=== PATIENT | male | born 1960 | race Caucasian/White ===

== ENCOUNTER 2016-07-16 14:17 | Inpatient (IN) | payer OTHER ==
[~2016-07-16] VITALS: Ht 177.8 cm; Wt 114.8 kg
[2016-07-16 14:34] VITALS: BP 169/119; PULSE 92; RESP 18; TEMP 99.5; O2SAT 99
--- NOTE | 2016-07-16 17:23 | RADHPO ---
EXAM DATE/TIME: 07/16/2016 17:06 [facility] COMPARISON: No previous studies available for comparison. INDICATIONS : Cough, fever and sore throat. Patient complains of more pain on left side. MEDICAL HISTORY : None. SURGICAL HISTORY : None. ENCOUNTER: Initial ACUITY: 2 weeks PAIN SCORE: 5/10 LOCATION: Left neck FINDINGS: Two view examination of the soft tissues of the neck demonstrates the hypopharyngeal airway to have a grossly normal configuration. The trachea is midline. No radiopaque foreign bodies are seen. CONCLUSION: Negative for abscess. Williams Perez MD FACR on July 16, 2016 at 17:21 Board Certified Radiologist. This report was verified electronically.
[2016-07-16 19:14] VITALS: BP 201/117; PULSE 96; RESP 20; TEMP 101.7; O2SAT 98
[2016-07-16] MEDS ORDERED: DEXAMETHASONE SOD PHOS 20 MG/5 ML VIAL IV PUSH ONE (19:15)
[2016-07-16] MEDS ORDERED: AMPICILLIN-SULBACTAM INJ 3 GM in SODIUM CHLORIDE 0.9% INJ 100 ML IV ONE (19:15)
[2016-07-16] MEDS ORDERED: SODIUM CHLOR 0.9% 1000 ML INJ 1,000 ML IV ONE ×2 (19:15)
--- NOTE | 2016-07-16 19:27 | PD ---
HPI Chief Complaint: ENT Complaint Time Seen by Provider: 18:48 Travel History International Travel<30 days: No Contact w/Intl Traveler<30days: No Traveled to known affect area: No History of Present Illness HPI This 56-year-old male says he been sick for the past week. He has been having cough and sore throat. He is having trouble swallowing and a lot of pain with swallowing. He went to an urgent care center today and was told he had an abscess in his throat is clear. He has had some borderline blood pressure elevations in the past but has never been on medication. [facility] Past Medical History Medical History: Denies Significant Hx Influenza Vaccination: No Past Surgical History Oral Surgery: Yes (ADDENOIDS) Social History Alcohol Use: No Tobacco Use: No Substance Use: No Allergies-Medications (Allergen,Severity, Reaction): Coded Allergies: No Known Allergies (Unverified , 07/16/16) Reported Meds & Prescriptions Reported Meds & Active Scripts Active No Active Prescriptions or Reported Medications Review of Systems General / Constitutional: Positive: Fever, Chills HENT: Positive: Sore Throat, No: Headaches, Vertigo Cardiovascular: No: Chest Pain or Discomfort Respiratory: Positive: Cough Gastrointestinal: No: Vomiting, Diarrhea Genitourinary: No: Urgency, Frequency Musculoskeletal: No: Myalgias Neurologic: Positive: Weakness Hematologic/Lymphatic: No: Easy Bruising Physical Exam Narrative GENERAL: Well-developed male SKIN: Warm and dry. HEAD: Atraumatic. Normocephalic. EYES: Pupils equal and round. No scleral icterus. No injection or drainage. ENT: No nasal bleeding or discharge. Mucous membranes pink and moist. Pharynx is erythematous. There is blunting of the tissue in the left peritonsillar region. The uvula is deviated to the right NECK: Trachea midline. No JVD. CARDIOVASCULAR: Regular rate and rhythm. No murmur appreciated. RESPIRATORY: No accessory muscle use. Clear to auscultation. Breath sounds equal bilaterally. GASTROINTESTINAL: Abdomen soft, non-tender, nondistended. Hepatic and splenic margins not palpable. MUSCULOSKELETAL: No obvious deformities. No clubbing. No cyanosis. No edema. NEUROLOGICAL: Awake and alert. No obvious cranial nerve deficits. Motor grossly within normal limits. Normal speech. PSYCHIATRIC: Appropriate mood and affect; insight and judgment normal. Data Data Last Documented VS Vital Signs Date Time Temp Pulse Resp B/P Pulse Ox O2 Delivery O2 Flow Rate FiO2 07/16/16 19:21 105 20 07/16/16 19:14 98 Nasal Cannula 2 07/16/16 19:14 101.7 201/117 Orders Soft Tissue Neck (07/16/16 ) Complete Blood Count With Diff (07/16/16 19:08) Comprehensive Metabolic Panel (07/16/16 19:08) Lactic Acid Sepsis Protocol (07/16/16 19:08) Urinalysis - C+S If Indicated (07/16/16 19:08) Blood Culture (07/16/16 19:08) Chest, Single Ap (07/16/16 19:08) Blood Glucose (07/16/16 19:08) Ecg Monitoring (07/16/16 19:08) Iv Access Insert/Monitor (07/16/16 19:08) Oximetry (07/16/16 19:08) Oxygen Administration (07/16/16 19:08) Sodium Chlor 0.9% 1000 Ml Inj (Ns 1000 M (07/16/16 19:15) Sodium Chlor 0.9% 1000 Ml Inj (Ns 1000 M (07/16/16 19:15) Ampicillin-Sulbactam Inj (Unasyn Inj) (07/16/16 19:15) Dexamethasone Inj (Decadron Inj) (07/16/16 19:15) Ct Soft Tiss Neck W Iv Cont (07/16/16 19:12) Acetaminophen (Tylenol) (07/16/16 19:30) Ibuprofen (Motrin) (07/16/16 19:30) Iohexol 350 Inj (Omnipaque 350 Inj) (07/16/16 20:40) Labs Laboratory Tests Test 07/16/16 07/16/16 19:00 20:40 White Blood Count 16.4 TH/MM3 Red Blood Count 4.91 MIL/MM3 Hemoglobin 13.7 GM/DL Hematocrit 42.5 % Mean Corpuscular Volume 86.5 FL Mean Corpuscular Hemoglobin 28.0 PG Mean Corpuscular Hemoglobin 32.3 % Concent Red Cell Distribution Width 12.9 % Platelet Count 284 TH/MM3 Mean Platelet Volume 8.6 FL Neutrophils (%) (Auto) 83.9 % Lymphocytes (%) (Auto) 7.6 % Monocytes (%) (Auto) 6.9 % Eosinophils (%) (Auto) 1.1 % Basophils (%) (Auto) 0.5 % Neutrophils # (Auto) 13.8 TH/MM3 Lymphocytes # (Auto) 1.2 TH/MM3 Monocytes # (Auto) 1.1 TH/MM3 Eosinophils # (Auto) 0.2 TH/MM3 Basophils # (Auto) 0.1 TH/MM3 CBC Comment AUTO DIFF Differential Comment AUTO DIFF CONFIRMED Platelet Estimate NORMAL Platelet Morphology Comment NORMAL Sodium Level 140 MEQ/L Potassium Level 3.9 MEQ/L Chloride Level 103 MEQ/L Carbon Dioxide Level 27.8 MEQ/L Anion Gap 9 MEQ/L Blood Urea Nitrogen 14 MG/DL Creatinine 0.94 MG/DL Estimat Glomerular Filtration 83 ML/MIN Rate Random Glucose 105 MG/DL Calcium Level 9.2 MG/DL Total Bilirubin 0.7 MG/DL Aspartate Amino Transf 17 U/L (AST/SGOT) Alanine Aminotransferase 42 U/L (ALT/SGPT) Alkaline Phosphatase 195 U/L Total Protein 8.4 GM/DL Albumin 3.2 GM/DL Lactic Acid Level 0.9 mmol/L [facility] Medical Decision Making Medical Screen Exam Complete: Yes Emergency Medical Condition: Yes Medical Record Reviewed: Yes Differential Diagnosis Frontal includes cellulitis, abscess, Narrative Course Patient was started on IV fluids and antibiotics. A CT scan shows soft tissue swelling on the left side of the oropharynx and tonsillar region extending into her left parapharyngeal region consistent with a early abscess left tonsil on parapharyngeal space. There is also an enlarged left submandibular lymph node is a 2 cm. I have discussed the case with Dr. Early. He will consult on the patient in [place]. He asked that we add clindamycin to his antibiotics and keep the patient nothing by mouth Sepsis Criteria SIRS Criteria (2 or more): Temp > 100.9 or < 96.8, Heart rate over 90, WBC > 40909, < 4000 or > 10% bands Sepsis Criteria (SIRS+source): Infect source susp/known Diagnosis Primary Impression: Peritonsillar abscess Admitting Information Admitting Physician Requests: Admit Scripts No Active Prescriptions or Reported Meds Matias Mcmahon MD Jul 16, 2016 19:27
[2016-07-16] MEDS ORDERED: ACETAMINOPHEN 500 MG CPLT PO ONE (19:30)
[2016-07-16] MEDS ORDERED: IBUPROFEN 600 MG TAB PO ONE (19:30)
[2016-07-16 19:32] LABS: AUTOMATED NEUTROPHIL # 13.8 TH/MM3 (1.8-7.7); BASOPHIL # 0.1 TH/MM3 (0-0.2); BASOPHIL % 0.5 % (0.0-2.0); EOSINOPHIL # 0.2 TH/MM3 (0-0.4); EOSINOPHIL % 1.1 % (0.0-4.0); HEMATOCRIT 42.5 % (39.0-51.0); LYMPH % 7.6 % (9.0-44.0); LYMPHOCYTE # 1.2 TH/MM3 (1.0-4.8); MEAN CELL VOLUME 86.5 FL (80.0-100.0); MEAN CORPUSCULAR HGB CONC 32.3 % (32.0-36.0); MONO % 6.9 % (0.0-8.0); NEUT % 83.9 % (16.0-70.0); PLATELET COUNT 284 TH/MM3 (150-450); RED BLOOD COUNT 4.91 MIL/MM3 (4.50-5.90); RED CELL DISTRIBUTION WIDTH 12.9 % (11.6-17.2); WHITE BLOOD COUNT 16.4 TH/MM3 (4.0-11.0)
[2016-07-16 19:36] LABS: CHLORIDE 103 MEQ/L (98-107); POTASSIUM 3.9 MEQ/L (3.5-5.1); SODIUM (NA) 140 MEQ/L (136-145)
[2016-07-16 19:40] LABS: ANION GAP 9 MEQ/L (5-15); BICARBONATE 27.8 MEQ/L (21.0-32.0); BLOOD UREA NITROGEN 14 MG/DL (7-18); HEMO FLAGS AUTO DIFF
[2016-07-16 19:43] LABS: ALT (GPT) 42 U/L (12-78); AST (GOT) 17 U/L (15-37); GLOMERULAR FILTRATION RATE 83 ML/MIN (>89)
[2016-07-16 19:45] LABS: TOTAL BILIRUBIN ADULT 0.7 MG/DL (0.2-1.0)
[2016-07-16 19:46] LABS: ALKALINE PHOSPHATASE 195 U/L (45-117)
[2016-07-16 20:20] LABS: PLATELET ESTIMATE SMEAR NORMAL (NORMAL); PLATELET MORPHOLOGY NORMAL (NORMAL); SCAN/DIFF AUTO DIFF CONFIRMED
--- NOTE | 2016-07-16 20:23 | RADHPO ---
EXAM DATE/TIME: 07/16/2016 19:21 [facility] COMPARISON: No previous studies available for comparison. INDICATIONS : Cough, fever and sore throat. MEDICAL HISTORY : None. SURGICAL HISTORY : None. ENCOUNTER: Initial ACUITY: 2 weeks PAIN SCORE: 6/10 LOCATION: Bilateral chest FINDINGS: A single view of the chest demonstrates the lungs to be symmetrically aerated without evidence of mas s, infiltrate or effusion. The cardiomediastinal contours are unremarkable except tortuous aorta. O sseous structures are intact. CONCLUSION: 1. No active disease. Gabino Cali MD on July 16, 2016 at 20:21 Board Certified Radiologist. This report was verified electronically.
[2016-07-16] MEDS ORDERED: IOHEXOL 350 MG/ML 10 ML VIAL (for RAD DIAG) IV ONE (20:40)
--- NOTE | 2016-07-16 21:06 | RADHPO ---
EXAM DATE/TIME: 07/16/2016 20:09 [facility] COMPARISON: No previous studies available for comparison. INDICATIONS : Difficult swallowing, abscess IV CONTRAST: 76 cc Omnipaque 350 (iohexol) IV RADIATION DOSE: 13.71 CTDIvol (mGy) MEDICAL HISTORY : None SURGICAL HISTORY : Tonsillectomy. ENCOUNTER: Initial ACUITY: 1 day PAIN SCALE: 5/10 LOCATION: neck TECHNIQUE: Volumetric scanning of the neck was performed. Using automated exposure control and adjustment of th e mA and/or kV according to patient size, radiation dose was kept as low as reasonably achievable to obtain optimal diagnostic quality images. FINDINGS: There is extensive soft tissue swelling in the left tonsillar region extending into the left paraphar yngeal space. There is an area of low attenuation measuring about 2.3 cm in diameter most characteris tic of an early tonsillar or left parapharyngeal space abscess. There is encroachment on the left dottie e of the oropharynx and soft tissue swelling extends inferiorly into the preepiglottic space and late ral pharyngeal wall above the glottis. Enlarged submandibular lymph nodes are present on the left dottie e measuring up to about 2 cm in diameter. No acute bony abnormalities. Retention cyst in the right maxillary sinus. Mucosal thickening left max illary sinus. Lung apices are clear. CONCLUSION: Abnormal soft tissue swelling on the left side of the oropharynx and tonsillar region and extending i nto the left parapharyngeal region. There is soft tissue swelling of the lateral pharyngeal wall exte nding almost to the level of the glottis. There is a subtle area of low attenuation measuring up to 2 .3 cm in diameter, probably an early abscess in the left tonsil and parapharyngeal space. Enlarged le ft submandibular lymph node to 2 cm in diameter. Gabino Cali MD on July 16, 2016 at 20:58 Board Certified Radiologist. This report was verified electronically.
[2016-07-16] MEDS ORDERED: CLINDAMYCIN INJ 900 MG in SODIUM CHLORIDE 0.9% INJ 100 ML IV ONE (21:30)
[2016-07-16] MEDS ORDERED: cloNIDine HCL 0.1 MG TAB PO ONE (21:45)
[2016-07-16 21:50] VITALS: BP 165/82; PULSE 60; RESP 20; O2SAT 98
[2016-07-16] MEDS ORDERED: SODIUM CHLOR 0.9% 1000 ML INJ 1,000 ML IV SCH (23:41)
[2016-07-16 23:43] VITALS: BP 155/95; PULSE 79; RESP 20; TEMP 99; O2SAT 97
[2016-07-16] MEDS ORDERED: SODIUM CHLORIDE 0.9% FLUSH 5 ML FLUSH FLUSH PRN (23:45)
[2016-07-16] MEDS ORDERED: NALOXONE HCL 0.4 MG/ML AMP IV PRN (23:45)
[2016-07-17] VITALS (10 sets, daily range): BP systolic 135–162; BP diastolic 75–98; PULSE 60–79; RESP 16–20; TEMP 96.8–98.9; O2SAT 95–99
[2016-07-17 00:19] LABS: GLUCOSE,URINE NEG (NEG); KETONE, URINE 40 mg/dL (NEG); NITRITE,URINE NEG (NEG); PH, URINE 5.5 (5.0-8.5)
[2016-07-17 00:26] LABS: BLOOD, URINE MOD (NEG)
[2016-07-17 00:27] LABS: METHOD OF COLLECTION CLEAN CATCH
[2016-07-17 00:28] LABS: URINE COLOR AMBER (YELLW/STRAW)
[2016-07-17] MEDS: PANTOPRAZOLE SODIUM 40 MG VIAL IV PUSH SCH (00:28)
[2016-07-17] MEDS: DEXAMETHASONE SOD PHOS 4 MG/ML VIAL IV PUSH SCH ×5 (00:28→17:25)
[2016-07-17 00:29] LABS: COMMENT (UR) CULT NOT INDICATED; CULTURE IF INDICATED CULT NOT INDICATED; SQUAMOUS EPITHELIAL CELL URINE 0-5 /hpf (0-5); WBC, URINE 0-2 /hpf (0-5)
[2016-07-17] MEDS: AMPICILLIN-SULBACTAM INJ 3 GM in SODIUM CHLORIDE 0.9% INJ 100 ML IV SCH ×2 (03:02→08:28)
[2016-07-17] MEDS: CLINDAMYCIN INJ 900 MG in SODIUM CHLORIDE 0.9% INJ 100 ML IV SCH ×4 (05:04→22:42)
[2016-07-17 06:20] LABS: AUTOMATED NEUTROPHIL # 13.2 TH/MM3 (1.8-7.7); BASOPHIL # 0.1 TH/MM3 (0-0.2); BASOPHIL % 0.6 % (0.0-2.0); HEMATOCRIT 37.7 % (39.0-51.0); LYMPH % 5.7 % (9.0-44.0); LYMPHOCYTE # 0.8 TH/MM3 (1.0-4.8); MEAN CELL VOLUME 85.9 FL (80.0-100.0); MEAN CORPUSCULAR HEMOGLOBIN 28.8 PG (27.0-34.0); MEAN CORPUSCULAR HGB CONC 33.5 % (32.0-36.0); MONO % 1.5 % (0.0-8.0); NEUT % 92.2 % (16.0-70.0); PLATELET COUNT 253 TH/MM3 (150-450); RED BLOOD COUNT 4.39 MIL/MM3 (4.50-5.90); RED CELL DISTRIBUTION WIDTH 12.3 % (11.6-17.2); WHITE BLOOD COUNT 14.3 TH/MM3 (4.0-11.0)
[2016-07-17 06:22] LABS: HEMO FLAGS DIFF FINAL
[2016-07-17 06:28] LABS: POTASSIUM 4.6 MEQ/L (3.5-5.1)
[2016-07-17 06:31] LABS: BICARBONATE 27.4 MEQ/L (21.0-32.0)
[2016-07-17] MEDS ORDERED: LACTATED RINGER'S 1000 ML INJ 1,000 ML ONE (08:21)
[2016-07-17] MEDS ORDERED: SODIUM CHLORIDE 0.9% INJ 100 ML ONE (08:21)
[2016-07-17] MEDS ORDERED: AMPICILLIN-SULBACTAM INJ 3 GM VIAL ONE (08:21)
[2016-07-17] MEDS: SODIUM CHLORIDE 0.9% FLUSH 5 ML FLUSH FLUSH SCH ×2 (09:00→21:00)
[2016-07-17] MEDS ORDERED: FAMOTIDINE 20 MG/2 ML VIAL ONE (10:00)
[2016-07-17] MEDS ORDERED: OXYMETAZOLINE HCL 0.05% 15 ML NASAL SPRAY NASAL ONE (10:45)
[2016-07-17] MEDS ORDERED: MICROFIBRILLAR COLLAGEN HEMOSTAT 1 GM PKT TOPICAL ONE (10:48)
[2016-07-17] MEDS ORDERED: LABETALOL HCL 100 MG/20 ML VIAL ONE (11:11)
[2016-07-17] MEDS ORDERED: MORPHINE SULFATE 4 MG/ML INJ ONE ×2 (11:14→11:25)
[2016-07-17] MEDS ORDERED: ENALAPRILAT 1.25 MG/ML VIAL ONE (11:22)
[2016-07-17] MEDS ORDERED: MIDAZOLAM HCL 2 MG/2 ML VIAL ONE (11:24)
[2016-07-17] MEDS ORDERED: PROPOFOL 200 MG/20 ML AMP IV ONE (12:00)
[2016-07-17] MEDS ORDERED: LACTATED RINGER'S 1000 ML INJ 1,000 ML IV ONE (12:00)
[2016-07-17] MEDS ORDERED: ONDANSETRON HCL 4 MG/2 ML VIAL IV PUSH ONE (12:00)
[2016-07-17] MEDS ORDERED: ONDANSETRON HCL 4 MG/2 ML VIAL IV PUSH PRN (13:00)
[2016-07-17] MEDS ORDERED: ACETAMINOPHEN 325MG/HYDROcodone 7.5MG/15ML UDC PO PRN (13:00)
[2016-07-17] MEDS ORDERED: DO NOT ADM ANY ANTICOAGULANT DRUGS XX PRN (13:45)
--- NOTE | 2016-07-17 17:02 | EKG ---
Date Performed: 07/17/2016 Time Performed: 07:59:42 PTAGE: 56 years EKG: Sinus rhythm Inferior infarct - age undetermined Abnormal ECG NO PREVIOUS TRACING DOCTOR: Merlin Taylor Interpretating Date/Time 07/17/2016 16:59:29
[2016-07-17] MEDS: AMPICILLIN/SULBAC 3 GM/NS 100 ML IV SCH ×2 (17:11)
[2016-07-17] MEDS: LACTATED RINGER'S 1000 ML INJ 1,000 ML IV SCH ×2 (17:12→22:47)
--- NOTE | 2016-07-17 17:42 | HHI.HP ---
[facility] No Primary Care Physician Admission Diagnosis PERITONSILLAR ABCESS Diagnoses: (1) Sepsis Diagnosis: Principal (2) Peritonsillar abscess Diagnosis: Principal (3) Hypertensive urgency Diagnosis: Principal Chief Complaint: pain, dysphagia Travel History International Travel<30 Days: No Contact w/Intl Traveler <30 Da: No Traveled to Known Affected Are: No History of Present Illness 56-year-old male was admitted for peritonsillar abscess. The patient states that he became sick 1 week ago yesterday with a cold, cough, and sore throat. He states he took kiaw-ebo-kuquzam medication. He states he had a bout of acid reflux which made the pain go further upward. He admits to dysphagia more recently. He denies any shortness of breath. Denies any vomiting. No other symptoms reported. Dr. Early evaluated the patient and performed drainage of abscess today. Review of Systems Other ROS 10 negative unless otherwise indicated positive in history of present illness. Past Family Social History Past Medical History Patient states his blood pressure is at the upper limits of normal. Past Surgical History [place] teeth extraction at the age of 19. Adenoidectomy at age 11. Reported Medications No Active Prescriptions or Reported Medications Allergies: Coded Allergies: No Known Allergies (Unverified , 07/17/16) Family History Both parents had heart disease- CHF. Father: of "double" pneumonia. Mother: Had stroke and pacemaker. Social History Denies cigarette smoking. Physical Exam Vital Signs Vital Signs Date Time Temp Pulse Resp B/P Pulse Ox O2 Delivery O2 Flow Rate FiO2 07/17/16 16:37 98.9 79 16 135/75 98 07/17/16 15:05 97 Face Tent 40 07/17/16 15:05 97 Face Tent 40 07/17/16 13:25 97.7 61 16 131/86 94 Room Air 07/17/16 12:45 64 16 129/86 99 07/17/16 12:30 62 16 159/82 99 07/17/16 12:15 64 16 169/88 99 07/17/16 12:00 67 16 182/98 100 07/17/16 11:45 66 16 192/102 100 07/17/16 11:30 64 16 192/117 99 07/17/16 11:15 66 16 189/106 100 07/17/16 11:13 98.5 80 16 173/113 98 Face Tent 8 07/17/16 08:03 71 07/17/16 07:54 97.9 70 16 150/88 96 07/17/16 07:20 97.5 78 18 162/88 96 Room Air 07/17/16 07:08 18 07/17/16 06:21 98.9 78 20 152/93 95 07/17/16 03:43 60 20 141/87 99 07/17/16 01:43 70 20 153/84 97 07/16/16 23:43 99.0 79 20 155/95 97 Nasal Cannula 2 07/16/16 21:50 60 20 165/82 98 07/16/16 19:21 105 20 07/16/16 19:14 98 Nasal Cannula 2 07/16/16 19:14 101.7 96 20 201/117 98 Nasal Cannula 2 07/16/16 18:51 107 18 Physical Exam GENERAL: This is a pleasant well-nourished, well-developed patient, in no apparent distress. SKIN: No rashes, ecchymoses or lesions. Cool and dry. HEAD: Atraumatic. Normocephalic. EYES: No scleral icterus. No injection or drainage. ENT: Difficult to visualize pharynx on exam. Airway patent. No muffled speech. No drooling. NECK: Trachea midline. CARDIOVASCULAR: Regular rate and rhythm. RESPIRATORY: Clear to auscultation. Breath sounds equal bilaterally. No wheezes , rales, or rhonchi. GASTROINTESTINAL: Abdomen soft, non-tender, nondistended. NEUROLOGICAL: Awake and alert. Motor grossly within normal limits. Five out of 5 muscle strength in all muscle groups. Normal speech. PSYCHIATRIC: Normal mood and affect. Laboratory Laboratory Tests Test 07/16/16 07/16/16 07/16/16 07/17/16 19:00 20:40 23:50 06:15 White Blood Count 16.4 14.3 Red Blood Count 4.91 4.39 Hemoglobin 13.7 12.7 Hematocrit 42.5 37.7 Mean Corpuscular Volume 86.5 85.9 Mean Corpuscular Hemoglobin 28.0 28.8 Mean Corpuscular Hemoglobin 32.3 33.5 Concent Red Cell Distribution Width 12.9 12.3 Platelet Count 284 253 Mean Platelet Volume 8.6 8.2 Neutrophils (%) (Auto) 83.9 92.2 Lymphocytes (%) (Auto) 7.6 5.7 Monocytes (%) (Auto) 6.9 1.5 Eosinophils (%) (Auto) 1.1 0.0 Basophils (%) (Auto) 0.5 0.6 Neutrophils # (Auto) 13.8 13.2 Lymphocytes # (Auto) 1.2 0.8 Monocytes # (Auto) 1.1 0.2 Eosinophils # (Auto) 0.2 0.0 Basophils # (Auto) 0.1 0.1 CBC Comment AUTO DIFF DIFF FINAL Differential Comment AUTO DIFF CONFIRMED Platelet Estimate NORMAL Platelet Morphology Comment NORMAL Sodium Level 140 141 Potassium Level 3.9 4.6 Chloride Level 103 106 Carbon Dioxide Level 27.8 27.4 Anion Gap 9 8 Blood Urea Nitrogen 14 14 Creatinine 0.94 0.91 Estimat Glomerular Filtration 83 86 Rate Random Glucose 105 151 Calcium Level 9.2 8.4 Total Bilirubin 0.7 Aspartate Amino Transf 17 (AST/SGOT) Alanine Aminotransferase 42 (ALT/SGPT) Alkaline Phosphatase 195 Total Protein 8.4 Albumin 3.2 Lactic Acid Level 0.9 Urine Collection Type CLEAN CATCH Urine Color HERNÁN Urine Turbidity CLEAR Urine pH 5.5 Urine Specific [place] GREATER THAN 1.035 Urine Protein TRACE Urine Glucose (UA) NEG Urine Ketones 40 Urine Occult Blood MOD Urine Nitrite NEG Urine Bilirubin NEG Urine Leukocyte Esterase NEG Urine RBC 4-9 Urine WBC 0-2 Urine Squamous Epithelial 0-5 Cells Microscopic Urinalysis Comment CULT NOT INDICATED Date/Time Procedure Status Source Growth 07/16/16 19:20 Aerobic Blood Culture - Preliminary Resulted Blood Peripheral Gram Positive Rods 07/16/16 19:20 Anaerobic Blood Culture - Preliminary Resulted Blood Peripheral NO GROWTH IN 1 DAY Result Diagram: 07/17/1615 07/17/1615 Imaging Last Impressions Neck CT 07/16/161911 Signed Impressions: Service Date/Time: Saturday, July 16, 2016 20:09 - CONCLUSION: Abnormal soft tissue swelling on the left side of the oropharynx and tonsillar region and extending into the left parapharyngeal region. There is soft tissue swelling of the lateral pharyngeal wall extending almost to the level of the glottis. There is a subtle area of low attenuation measuring up to 2.3 cm in diameter, probably an early abscess in the left tonsil and parapharyngeal space. Enlarged left submandibular lymph node to 2 cm in diameter. Gabino Cali MD Chest X-Ray 07/16/16 1908 Signed Impressions: Service Date/Time: Saturday, July 16, 2016 19:21 - CONCLUSION: 1. No active disease. Gabino Cali MD Soft Tissue Neck X-Ray 07/16/16 0000 Signed Impressions: Service Date/Time: Saturday, July 16, 2016 17:06 - CONCLUSION: Negative for abscess. Williams Perez MD FACR Assessment and Plan Assessment and Plan 56-year-old male with: Sepsis: Temp 101.7. WBC 16.4-->14.3. Lactic acid normal. -Blood cultures: 06/13 with gram-positive rods. Await organism ID. -IVF -Antibiotics as below -Vitals, telemetry Peritonsillar abscess: Soft tissue neck x-ray and chest x-ray personally reviewed without acute disease. CT indicates peritonsillar abscess. -Dr. Early performed abscess drainage and tonsillectomy. -Unasyn and Clindamcyin IV -Dexamethasone IV -Hycet liquid for pain DVT prevention: SCDs, Lovenox sq. Written by Jacqueline Hannah PA-C acting as scribe for Dr. Haines on 07/17/16 at 1645. The documentation accurately reflects the work and decisions performed face-to- face by tx Dr. Haines on 07/17/16 at 1645. Physician Certification 2 Midnight Certification Type: Admission for Inpatient Services Order for Inpatient Services The services are ordered in accordance with Medicare regulations or non- Medicare payer requirements, as applicable. In the case of services not specified as inpatient-only, they are appropriately provided as inpatient services in accordance with the 2-midnight benchmark. Estimated LOS (days): 2 days is the estimated time the patient will need to remain in the hospital, assuming treatment plan goals are met and no additional complications. Post-Hospital Plan: Home Jacqueline Hannah Jul 17, 2016 17:42
[2016-07-17] MEDS ORDERED: ENOXAPARIN SODIUM 40 MG/0.4 ML SYRINGE SQ SCH (18:00)
[2016-07-18] VITALS: BP 143/96; PULSE 62; RESP 20; TEMP 96.3; O2SAT 93
[2016-07-18] MEDS: PANTOPRAZOLE SODIUM 40 MG VIAL IV PUSH SCH (00:04)
[2016-07-18] MEDS: DEXAMETHASONE SOD PHOS 4 MG/ML VIAL IV PUSH SCH ×2 (00:04→05:32)
[2016-07-18] MEDS: AMPICILLIN/SULBAC 3 GM/NS 100 ML IV SCH ×2 (00:05)
[2016-07-18] MEDS ORDERED: diphenhydrAMINE HCL ELIXIR 12.5 MG/5 ML CUP PO ONE (01:30)
[2016-07-18 04:00] VITALS: BP 150/101; PULSE 68; RESP 20; TEMP 96; O2SAT 94
[2016-07-18] MEDS: CLINDAMYCIN INJ 900 MG in SODIUM CHLORIDE 0.9% INJ 100 ML IV SCH (04:36)
[2016-07-18 06:39] LABS: AUTOMATED NEUTROPHIL # 14.1 TH/MM3 (1.8-7.7); BASOPHIL % 0.1 % (0.0-2.0); EOSINOPHIL % 0.2 % (0.0-4.0); HEMATOCRIT 34.5 % (39.0-51.0); LYMPH % 7.3 % (9.0-44.0); LYMPHOCYTE # 1.2 TH/MM3 (1.0-4.8); MEAN CELL VOLUME 86.9 FL (80.0-100.0); MEAN CORPUSCULAR HEMOGLOBIN 28.7 PG (27.0-34.0); MEAN CORPUSCULAR HGB CONC 33.1 % (32.0-36.0); MONO % 3.7 % (0.0-8.0); NEUT % 88.7 % (16.0-70.0); PLATELET COUNT 249 TH/MM3 (150-450); RED BLOOD COUNT 3.97 MIL/MM3 (4.50-5.90); RED CELL DISTRIBUTION WIDTH 12.6 % (11.6-17.2); WHITE BLOOD COUNT 15.9 TH/MM3 (4.0-11.0)
[2016-07-18 07:23] LABS: HEMO FLAGS DIFF FINAL
[2016-07-18 08:00] VITALS: BP 156/98; PULSE 66; RESP 18; TEMP 97.8; O2SAT 96
[2016-07-18] MEDS ORDERED: CLIN1CAP6 PO (09:54)
--- NOTE | 2016-07-18 09:54 | HHI.DCPOC ---
Discharge Care Plan Diagnosis: (1) Peritonsillar abscess (2) Sepsis Goals to Promote Your Health * To prevent worsening of your condition and complications * To maintain your health at the optimal level Directions to Meet Your Goals Take your medications as prescribed Follow your dietary instruction Follow activity as directed Keep your appointments as scheduled Take your immunizations and boosters as scheduled If your symptoms worsen call your PCP, if no PCP go to Urgent Care Center or Emergency Room Smoking is Dangerous to Your Health. Avoid second hand smoke Call the 24-hour hour crisis hotline for domestic abuse at Neli Aguilar MD Jul 18, 2016 09:54
--- NOTE | 2016-07-18 10:04 | HHI.DS ---
Discharge Summary Admission Date Jul 17, 2016 at 16:42 Discharge Date: Jul 18, 2016 Admitting Diagnosis PERITONSILLAR ABCESS (1) Sepsis ICD Code: A41.9 Diagnosis: Principal (2) Peritonsillar abscess ICD Code: J36 Diagnosis: Principal (3) Hypertensive urgency ICD Code: I16.0 Diagnosis: Principal Procedures ENT: I and D peritonsillar abscess Brief History - From Admission 56-year-old male was admitted for peritonsillar abscess. The patient states that he became sick 1 week ago yesterday with a cold, cough, and sore throat. He states he took ascr-boi-eyoiowl medication. He states he had a bout of acid reflux which made the pain go further upward. He admits to dysphagia more recently. He denies any shortness of breath. Denies any vomiting. No other symptoms reported. Dr. Early evaluated the patient and performed drainage of abscess today. CBC/BMP: 07/18/16 0527 07/17/16 0615 Significant Findings Laboratory Tests Test 07/16/16 07/16/16 07/17/16 07/18/16 19:00 23:50 06:15 05:27 White Blood Count 16.4 TH/MM3 14.3 TH/MM3 15.9 TH/MM3 (4.0-11.0) (4.0-11.0) (4.0-11.0) Neutrophils (%) (Auto) 83.9 % 92.2 % 88.7 % (16.0-70.0) (16.0-70.0) (16.0-70.0) Lymphocytes (%) (Auto) 7.6 % 5.7 % 7.3 % (9.0-44.0) (9.0-44.0) (9.0-44.0) Neutrophils # (Auto) 13.8 TH/MM3 13.2 TH/MM3 14.1 TH/MM3 (1.8-7.7) (1.8-7.7) (1.8-7.7) Monocytes # (Auto) 1.1 TH/MM3 (0-0.9) Estimat Glomerular Filtration 83 ML/MIN (>89) 86 ML/MIN (>89) Rate Alkaline Phosphatase 195 U/L (45-117) Total Protein 8.4 GM/DL (6.4-8.2) Albumin 3.2 GM/DL (3.4-5.0) Urine Color HERNÁN (YELLW/STRAW) Urine Specific [place] GREATER THAN 1.035 (1.002-1.035) Urine Ketones 40 mg/dL (NEG) Urine Occult Blood MOD (NEG) Urine RBC 4-9 /hpf (0-3) Red Blood Count 4.39 MIL/MM3 3.97 MIL/MM3 (4.50-5.90) (4.50-5.90) Hemoglobin 12.7 GM/DL 11.4 GM/DL (13.0-17.0) (13.0-17.0) Hematocrit 37.7 % 34.5 % (39.0-51.0) (39.0-51.0) Lymphocytes # (Auto) 0.8 TH/MM3 (1.0-4.8) Random Glucose 151 MG/DL (74-106) Calcium Level 8.4 MG/DL (8.5-10.1) Imaging Last Impressions Neck CT 07/16/16 1912 Signed Impressions: Service Date/Time: Saturday, July 16, 2016 20:09 - CONCLUSION: Abnormal soft tissue swelling on the left side of the oropharynx and tonsillar region and extending into the left parapharyngeal region. There is soft tissue swelling of the lateral pharyngeal wall extending almost to the level of the glottis. There is a subtle area of low attenuation measuring up to 2.3 cm in diameter, probably an early abscess in the left tonsil and parapharyngeal space. Enlarged left submandibular lymph node to 2 cm in diameter. Gabino Cali MD Chest X-Ray 07/16/16 1908 Signed Impressions: Service Date/Time: Saturday, July 16, 2016 19:21 - CONCLUSION: 1. No active disease. Gabino Cali MD Soft Tissue Neck X-Ray 07/16/16 0000 Signed Impressions: Service Date/Time: Saturday, July 16, 2016 17:06 - CONCLUSION: Negative for abscess. Williams Perez MD FACR PE at Discharge GENERAL: This is a well-nourished, well-developed patient, in no apparent distress. ENT: Post op changes NEURO: Alert & Oriented x4 to person, place, time, situation. Moves all ext x4 Pt update on day of discharge patient discharged home as per oral surgery Hospital Course Patient discharged after I&D by Dr. Early. Steroids and IV antibiotics given. Oral medications called to pharmacy Pt Condition on Discharge: Good Discharge Disposition: Discharge Home Discharge Time: <= 30 minutes Discharge Instructions DIET: Follow Instructions for: Soft Diet Activities you can perform: Regular-No Restrictions Follow up Referrals: Appointment for Follow Up - 3 Weeks New Medications: Clindamycin (Clindamycin) 300 Mg Cap 300 MG PO TID Infection #30 Ref 0 CAP Additional Information Patient discharged home earlier RX to be picked up D/W JIMENEZ Aguilar,Neli Spear MD Jul 18, 2016 10:04
[2016-07-26] MEDS ORDERED: [UNRECOGNIZED DRUG - CODE] PO (14:48)
[2016-07-26] MEDS ORDERED: [UNRECOGNIZED DRUG - CODE] CHEW (14:48)
--- NOTE | 2016-08-13 08:06 | MP ---
cc: ZABRINA EARLY M.D. DATE OF SURGERY: 07/17/[address] Zabrina Early PREOPERATIVE DIAGNOSIS 1. Chronic tonsillitis 2. Adenotonsillar hypertrophy. 3. Peritonsillar abscess. POSTOPERATIVE DIAGNOSIS 1. Chronic tonsillitis 2. Adenotonsillar hypertrophy. 3. Peritonsillar abscess. OPERATION PERFORMED 1. Incision and drainage of right peritonsillar abscess. 2. Adenotonsillectomy. INDICATIONS The indications are documented in the history and physical. DESCRIPTION OF OPERATION The patient was taken to OR #2 and placed in the supine position. Following induction of general anesthesia and intubation, a shoulder roll, a Burke head drape and a McIvor mouth gag were put in place. The abscess of the right tonsil involved the superior pole extending into the soft palate. An incision in the superior pole was made using a #12 scalpel. This was then dissected down using a hemostat until the abscess cavity was encountered. This was drained of approximately 10 mL of brown purulent material and was cultured. The superior pole of the tonsil was then grasped with the tonsil tenaculum and retracted inferiorly. The remainder of the attachments of the tonsil to the tonsillar fossa were released using the Bovie cautery. The tonsil was passed off the field as specimen. The tonsillar fossa was then packed with tonsil sponge packs saturated in oxymetazoline. These remained in place while the left tonsil was removed using the Bovie cautery technique. This was also passed off the field as specimen. The pack was then removed from the right side and the sites of bleeding were cauterized using the suction Bovie at 35 coleman. Both tonsil fossa were then packed with Avitene microfibrils. The adenoids were then removed using the suction Bovie at 45 coleman. The stomach was aspirated of several cc's of clear gastric contents using a #18 [place] sump NG tube. When this was completed the mouth gag was removed and the procedure was terminated. The patient was reversed from anesthesia and taken to Recovery in good condition. There were no complications. Blood loss was 40 mL. MD CONOR Ahumada/MARIBEL /5:32 AM /7:57 AM
== END 2016-07-18 09:00 | disposition home or self-care (01) | DRG 854 ==
LOC: PHED 14:17 → INTOOBSV 22:39 → PHEDA 22:39 → PHEDH 07-17 02:52 → PH3A 07-17 13:16 → OBSVTOIN 07-17 16:42
PROVIDERS: ADMIT Hospitalist; ATTEND Hospitalist
PROC: 0CTPXZZ Resection of Tonsils, External Approach (ICD-10-PCS; 2016-07-17)
PROC: 0CTQXZZ Resection of Adenoids, External Approach (ICD-10-PCS; 2016-07-17)
PROC: 0C9PXZX Drainage of Tonsils, External Approach, Diagnostic (ICD-10-PCS; principal; 2016-07-17 10:12)
DX: A41.9 Sepsis, unspecified organism (principal); J36 Peritonsillar abscess; R13.10 Dysphagia, unspecified; I16.0 Hypertensive urgency; J35.01 Chronic tonsillitis; J35.3 Hypertrophy of tonsils with hypertrophy of adenoids; K21.9 Gastro-esophageal reflux disease without esophagitis
CPT/HCPCS: 70360; 70491; 71010; 80048; 80053; 81001; 83605; 85025; 87040; 87205; 88304; 93005; 94762; 96365; 96367; 96375; C9113; J0295; J1100; J1650; J2250; J2270; J2405; J3010; J7030; J7120; Q9967